=== PATIENT | female | born 2000 | race Caucasian/White ===

== ENCOUNTER 2022-07-18 19:15 | Emergency (ER) | payer OTHER ==
[~2022-07-18] VITALS: Ht 149.9 cm; Wt 97.5 kg
[2022-07-18] MEDS ORDERED: SODIUM CHLORIDE 0.9% 1000ML 1,000 ML IV SCH (20:30)
[2022-07-18 20:52] LABS: BASOPHILS # (AUTO) 0.1 (0.0-0.1); BASOPHILS % 0.8 % (0.0-1.0); EOSINOPHILS # (AUTO) 0.2 (0.0-0.4); EOSINOPHILS % 2.2 % (0.0-6.0); HEMATOCRIT 46.7 % (34.2-44.1); LYMPHOCYTES # (AUTO) 2.2 (1.0-3.2); LYMPHOCYTES % 21.4 % (18.0-39.1); MEAN CORPUSCULAR HEMOGLOBIN 29.5 pg (28-32); MEAN CORPUSCULAR HGB CONC 32.1 g/dL (31-35); MEAN CORPUSCULAR VOLUME 91.7 fL (81-99); MONOCYTES # (AUTO) 0.7 (0.2-0.8); MONOCYTES % 6.4 % (4.4-11.3); NEUTROPHILS # (AUTO) 7.1 (2.1-6.9); PLATELET COUNT 413 x10e3/uL (140-360); RED BLOOD COUNT 5.09 x10e6/uL (3.6-5.1)
[2022-07-18 21:10] LABS: INR 0.87
[2022-07-18 21:16] LABS: ALBUMIN 2.3 g/dL (3.5-5.0); ALBUMIN/GLOBULIN RATIO 0.5 (0.8-2.0); ANION GAP 13.8 mmol/L (8-16); CALCIUM 9.4 mg/dL (8.4-10.2); CREATININE, SERUM 1.32 mg/dL (0.57-1.11); POTASSIUM 3.8 mmol/L (3.5-5.1)
[2022-07-18 23:39] VITALS: BP 145/96
== END 2022-07-18 23:07 | disposition home or self-care (01) ==
LOC: ER 19:39
DX: N28.9 Disorder of kidney and ureter, unspecified (principal); R94.4 Abnormal results of kidney function studies; E10.9 Type 1 diabetes mellitus without complications; I10 Essential (primary) hypertension; E78.5 Hyperlipidemia, unspecified; Z88.0 Allergy status to penicillin; Z91.040 Latex allergy status; Z79.899 Other long term (current) drug therapy
CPT/HCPCS: 36415; 80053; 84702; 85025; 85610; 85730; 99283; J7030

== ENCOUNTER 2022-10-30 12:47 | Emergency (ER) | payer OTHER ==
[~2022-10-30] VITALS: Ht 149.9 cm; Wt 97.5 kg
[2022-10-30 13:16] LABS: BASOPHILS # (AUTO) 0.1 (0.0-0.1); BASOPHILS % 0.5 % (0.0-1.0); EOSINOPHILS # (AUTO) 0.1 (0.0-0.4); EOSINOPHILS % 0.6 % (0.0-6.0); HEMATOCRIT 36.6 % (34.2-44.1); HEMOGLOBIN 12.3 g/dL (12.0-16.0); LYMPHOCYTES # (AUTO) 0.9 (1.0-3.2); LYMPHOCYTES % 9.6 % (18.0-39.1); MEAN CORPUSCULAR HEMOGLOBIN 29.5 pg (28-32); MEAN CORPUSCULAR HGB CONC 33.6 g/dL (31-35); MEAN CORPUSCULAR VOLUME 87.8 fL (81-99); MONOCYTES # (AUTO) 0.6 (0.2-0.8); MONOCYTES % 6.9 % (4.4-11.3); NEUTROPHILS # (AUTO) 7.7 (2.1-6.9); PLATELET COUNT 344 x10e3/uL (140-360); RED BLOOD COUNT 4.17 x10e6/uL (3.6-5.1); RED CELL DISTRIBUTION WIDTH 11.8 % (11.7-14.4)
[2022-10-30] MEDS ORDERED: ONDANSETRON HCL INJ 2MG/ML 2ML 2 MG/ML VIAL IV STA (13:18)
[2022-10-30 13:33] LABS: ALANINE AMINOTRANSFERASE 16 IU/L (0-55); ALBUMIN 1.9 g/dL (3.5-5.0); ALBUMIN/GLOBULIN RATIO 0.4 (0.8-2.0); ALKALINE PHOSPHATASE 99 IU/L (40-150); ANION GAP 11.1 mmol/L (8-16); BLOOD UREA NITROGEN 16 mg/dL (7-26); BUN/CREATININE RATIO 11 (6-25); CALCIUM 8.6 mg/dL (8.4-10.2); CARBON DIOXIDE 23 mmol/L (22-29); CHLORIDE 107 mmol/L (98-107); CREATININE, SERUM 1.45 mg/dL (0.57-1.11); GLUCOSE 112 mg/dL (74-118); POTASSIUM 4.1 mmol/L (3.5-5.1); SODIUM 137 mmol/L (136-145)
[2022-10-30 14:10] VITALS: BP 159/102; PULSE 92; RESP 17; O2SAT 100
== END 2022-10-30 14:12 | disposition home or self-care (01) ==
LOC: ER 12:51
DX: I10 Essential (primary) hypertension (principal); E11.9 Type 2 diabetes mellitus without complications; E78.5 Hyperlipidemia, unspecified
CPT/HCPCS: 36415; 80053; 81025; 85025; 99283; J2405

== ENCOUNTER 2024-08-02 19:43 | Emergency (ER) | payer OTHER ==
[~2024-08-02] VITALS: Ht 149.9 cm; Wt 119.3 kg
[~2024-08-02 19:43] MED LIST: ACETAMINOPHEN325 M1 PO; BENZONATATE100 MG PO; HUMALOG SC; LEVOTHYROXINE50 MCG PO; LISINOPRIL-HCT1 EACH PO; ONDANSETRON ODT4 MG PO; ROSUVASTATIN CA10 MG PO; ZOLOFT100 MG PO
[2024-08-02 19:49] VITALS: TEMP 98.7
[2024-08-02] MEDS: ONDANSETRON HCL INJ 2MG/ML 2ML 2 MG/ML VIAL IV STA (20:11)
[2024-08-02] MEDS: ACETAMIN/BUTALBITAL/CAFFEINE TAB PO ONE (20:11)
[2024-08-02 20:12] VITALS: BP 177/87
[2024-08-02] MEDS: METOCLOPRAMIDE HCL 10 MG/2ML VIAL IV ONE (20:12)
[2024-08-02] MEDS: DIPHENHYDRAMINE HCL INJ 50 MG/ML VIAL IV ONE (20:12)
[2024-08-02] MEDS: HYDRALAZINE HCL 20 MG/ML VIAL IV ONE (20:12)
[2024-08-02 20:19] LABS: BASOPHILS # (AUTO) 0.1 (0.0-0.1); BASOPHILS % 0.5 % (0.0-1.0); EOSINOPHILS # (AUTO) 0.6 (0.0-0.4); EOSINOPHILS % 5.1 % (0.0-6.0); HEMATOCRIT 32.7 % (34.2-44.1); HEMOGLOBIN 11.4 g/dL (12.0-16.0); LYMPHOCYTES % 16.6 % (18.0-39.1); MEAN CORPUSCULAR HEMOGLOBIN 32.2 pg (28-32); MEAN CORPUSCULAR HGB CONC 34.9 g/dL (31-35); MEAN CORPUSCULAR VOLUME 92.4 fL (81-99); MONOCYTES # (AUTO) 0.6 (0.2-0.8); MONOCYTES % 5.2 % (4.4-11.3); NEUTROPHILS # (AUTO) 8.6 (2.1-6.9); NEUTROPHILS % 72.3 % (38.7-80.0); PLATELET COUNT 313 x10e3/uL (140-360); RED BLOOD COUNT 3.54 x10e6/uL (3.6-5.1); RED CELL DISTRIBUTION WIDTH 11.9 % (11.7-14.4); WHITE BLOOD COUNT 11.84 x10e3/uL (4.8-10.8)
[2024-08-02 20:33] LABS: ALBUMIN/GLOBULIN RATIO 0.8 (0.8-2.0); ANION GAP 16.9 mmol/L (8-16); BILIRUBIN,TOTAL 0.3 mg/dL (0.2-1.2); CALCIUM 7.4 mg/dL (8.4-10.2); CREATININE, SERUM 6.08 mg/dL (0.57-1.11); POTASSIUM 3.9 mmol/L (3.5-5.1)
[2024-08-02 23:45] VITALS: PULSE 82; RESP 16; O2SAT 100
[2024-08-03] MEDS ORDERED: FIORICET 50-301 EACH PO (00:01)
[2024-08-03] MEDS ORDERED: ONDANSETRON ODT4 MG SL (00:01)
== END 2024-08-03 00:18 | disposition home or self-care (01) ==
LOC: ER 19:48
DX: R51.9 Headache, unspecified (principal); I12.0 Hypertensive chronic kidney disease with stage 5 chronic kidney disease or end stage renal disease; E11.22 Type 2 diabetes mellitus with diabetic chronic kidney disease; E11.65 Type 2 diabetes mellitus with hyperglycemia; N18.6 End stage renal disease; Z99.2 Dependence on renal dialysis; G47.30 Sleep apnea, unspecified
CPT/HCPCS: 36415; 70450; 80053; 84702; 85025; 99283; J0360; J1200; J2405; J2765

== ENCOUNTER 2024-11-28 08:51 | Inpatient (IN) | payer MEDICAID, OTHER ==
[~2024-11-28] VITALS: Ht 149.9 cm; Wt 104.3 kg
[~2024-11-28 08:51] MED LIST changes: +FIORICET 50-301 EACH PO; +ONDANSETRON ODT4 MG SL
[2024-11-28] MEDS ORDERED: HUMULIN R100 UNIT/2 INJ (09:14)
[2024-11-28] MEDS ORDERED: CARVEDILOL12.5 MG PO (09:14)
[2024-11-28] MEDS ORDERED: LOSARTAN POTASS50 MG PO (09:14)
[2024-11-28] MEDS ORDERED: LANTUS 3ML100 UNITS/ SQ (09:14)
[2024-11-28] MEDS ORDERED: CALCITROL PO (09:14)
[2024-11-28] MEDS ORDERED: HYDRALAZINE HCL50 MG PO (09:14)
[2024-11-28] MEDS ORDERED: PROCARDIA XL30 MG PO (09:14)
[2024-11-28] MEDS ORDERED: VITAMIN D250 MCG PO (09:14)
[2024-11-28] MEDS ORDERED: HYDROXYZIN10 MG/5 ML PO (09:14)
[2024-11-28] MEDS ORDERED: BUMETANIDE2 MG PO (09:14)
[2024-11-28] MEDS ORDERED: MAGNESIUM OXID400 MG PO (09:14)
[2024-11-28] MEDS: ONDANSETRON HCL INJ 2MG/ML 2ML 2 MG/ML VIAL IV STA (09:46)
[2024-11-28 09:57] LABS: BILIRUBIN,URINE NEGATIVE (NEGATIVE); CLARITY,URINE TURBID (CLEAR); COLOR,URINE YELLOW (YELLOW); GLUCOSE, URINE 500 (NEGATIVE); KETONES,URINE NEGATIVE (NEGATIVE); LEUKOCYTE ESTERASE ,URINE NEGATIVE (NEGATIVE); NITRITE,URINE NEGATIVE (NEGATIVE); PH,URINE 7 (5 - 7); PROTEIN,URINE DIPSTICK >=300 (NEGATIVE); URINE UROBILINOGEN 0.2 mg/dL (0.2 - 1)
[2024-11-28 09:58] LABS: ALANINE AMINOTRANSFERASE 6 IU/L (0-55); ALBUMIN 2.3 g/dL (3.5-5.0); ALBUMIN/GLOBULIN RATIO 0.5 (0.8-2.0); ALKALINE PHOSPHATASE 85 IU/L (40-150); ANION GAP 19.4 mmol/L (8-16); BILIRUBIN,TOTAL 0.3 mg/dL (0.2-1.2); BLOOD UREA NITROGEN 42 mg/dL (7-26); BUN/CREATININE RATIO 3 (6-25); CARBON DIOXIDE 19 mmol/L (22-29); CHLORIDE 98 mmol/L (98-107); CREATININE, SERUM 12.08 mg/dL (0.57-1.11); EST GLOMERULAR FILTRATION RATE 4 ML/MIN (>=60); GLUCOSE 252 mg/dL (74-118); LIPASE 5 U/L (8-78); SODIUM 133 mmol/L (136-145); TOTAL PROTEIN 6.5 g/dL (6.5-8.1)
[2024-11-28 10:06] LABS: BACTERIA,URINE MANY /HPF; EPITHELIAL CELLS,URINE MANY /LPF
[2024-11-28 10:10] LABS: POTASSIUM 3.4 mmol/L (3.5-5.1)
[2024-11-28 10:42] LABS: BASOPHILS # (AUTO) 0.1 (0.0-0.1); BASOPHILS % 0.4 % (0.0-1.0); EOSINOPHILS # (AUTO) 0.3 (0.0-0.4); EOSINOPHILS % 1.2 % (0.0-6.0); HEMATOCRIT 32.5 % (34.2-44.1); HEMOGLOBIN 11.2 g/dL (12.0-16.0); LYMPHOCYTES % 4.9 % (18.0-39.1); MEAN CORPUSCULAR HEMOGLOBIN 31.3 pg (28-32); MEAN CORPUSCULAR HGB CONC 34.5 g/dL (31-35); MEAN CORPUSCULAR VOLUME 90.8 fL (81-99); MONOCYTES # (AUTO) 1.5 (0.2-0.8); MONOCYTES % 6.9 % (4.4-11.3); NEUTROPHILS # (AUTO) 18.5 (2.1-6.9); PLATELET COUNT 238 x10e3/uL (140-360); RED BLOOD COUNT 3.58 x10e6/uL (3.6-5.1); RED CELL DISTRIBUTION WIDTH 11.6 % (11.7-14.4); WHITE BLOOD COUNT 21.43 x10e3/uL (4.8-10.8)
[2024-11-28] MEDS: CLINDAMYCIN 600MG / 50ML 50 ML IV ONE (11:27)
[2024-11-28] MEDS ORDERED: SODIUM CHLORIDE FLUSH 10 ML SYR INJ PRN (11:45)
[2024-11-28] MEDS: ACETAMINOPHEN 325 MG TAB PO ONE (11:59)
[2024-11-28 13:15] VITALS: PULSE 90; RESP 18; TEMP 99.6
[2024-11-28 16:00] VITALS: BP 152/79; PULSE 93; RESP 18; TEMP 99.5; O2SAT 98
[2024-11-28 17:09] VITALS: BP 153/95; PULSE 90; RESP 18; TEMP 99.6; O2SAT 99
[2024-11-28 17:17] VITALS: BP 153/95; PULSE 90; RESP 18; TEMP 99.6; O2SAT 99
[2024-11-28] MEDS ORDERED: HYDROXYZINE HCL25 MG PO (17:28)
[2024-11-28] MEDS ORDERED: ESCITALOPRAM OXA5 MG PO (17:28)
[2024-11-28] MEDS ORDERED: SEVELAMER CARB800 MG PO (17:28)
[2024-11-28] MEDS ORDERED: BISACODYL 10 MG SUPP PR PRN (17:30)
[2024-11-28] MEDS ORDERED: POLYETHYLENE GLYCOL 3350 17 GM PACK PO PRN (17:30)
[2024-11-28] MEDS: ACETAMINOPHEN 325 MG TAB PO PRN (19:18)
[2024-11-28 20:27] VITALS: BP 165/108; PULSE 103; RESP 18; TEMP 98.4; O2SAT 99
[2024-11-28] MEDS: CLINDAMYCIN PHOS 900MG/ 50ML 50 ML IV SCH (20:41)
[2024-11-28] MEDS: HEPARIN SOD (PORCINE) 5,000 UNIT/ML VIAL SC SCH (20:42)
[2024-11-28] MEDS: HYDRALAZINE HCL 20 MG/ML VIAL IV PRN (20:43)
[2024-11-28] MEDS: ONDANSETRON HCL INJ 2MG/ML 2ML 2 MG/ML VIAL IV PRN (20:43)
[2024-11-28] MEDS: INSULIN GLARGINE 100 UNITS/ML VIAL SQ SCH (22:16)
[2024-11-28] MEDS: INSULIN LISPRO 100 UNIT/1 ML 3ML VIAL SQ SCH (22:17)
[2024-11-29] VITALS (10 sets, daily range): BP systolic 106–166; BP diastolic 57–108; PULSE 78–103; RESP 16–20; TEMP 98.1–100.5; O2SAT 97–100
[2024-11-29 06:24] LABS: BASOPHILS # (AUTO) 0.1 (0.0-0.1); BASOPHILS % 0.4 % (0.0-1.0); EOSINOPHILS # (AUTO) 0.1 (0.0-0.4); EOSINOPHILS % 0.4 % (0.0-6.0); HEMATOCRIT 29.7 % (34.2-44.1); HEMOGLOBIN 10.4 g/dL (12.0-16.0); LYMPHOCYTES # (AUTO) 1.2 (1.0-3.2); LYMPHOCYTES % 5.4 % (18.0-39.1); MEAN CORPUSCULAR HEMOGLOBIN 31.4 pg (28-32); MEAN CORPUSCULAR VOLUME 89.7 fL (81-99); MONOCYTES # (AUTO) 1.3 (0.2-0.8); MONOCYTES % 5.7 % (4.4-11.3); NEUTROPHILS # (AUTO) 19.5 (2.1-6.9); NEUTROPHILS % 87.1 % (38.7-80.0); PLATELET COUNT 243 x10e3/uL (140-360); RED BLOOD COUNT 3.31 x10e6/uL (3.6-5.1); RED CELL DISTRIBUTION WIDTH 11.7 % (11.7-14.4); WHITE BLOOD COUNT 22.45 x10e3/uL (4.8-10.8)
[2024-11-29 06:43] LABS: ALBUMIN 1.9 g/dL (3.5-5.0); ALBUMIN/GLOBULIN RATIO 0.5 (0.8-2.0); ANION GAP 19.4 mmol/L (8-16); BILIRUBIN,TOTAL 0.3 mg/dL (0.2-1.2); CALCIUM 7.1 mg/dL (8.4-10.2); CREATININE, SERUM 11.95 mg/dL (0.57-1.11); TOTAL PROTEIN 5.9 g/dL (6.5-8.1)
[2024-11-29 06:45] LABS: POTASSIUM 3.4 mmol/L (3.5-5.1)
[2024-11-29 07:07] LABS: MAGNESIUM 1.5 MG/DL (1.3-2.1)
[2024-11-29] MEDS: INSULIN LISPRO 100 UNIT/1 ML 3ML VIAL SQ ONE (07:15)
[2024-11-29 07:32] LABS: THYROID STIMULATING HORMONE 2.284 uIU/mL (0.350-4.940)
[2024-11-29] MEDS: SODIUM CHLORIDE 0.9% 250ML 250 ML ONE (07:45)
[2024-11-29] MEDS: BUMETANIDE 1 MG TAB PO SCH (08:26)
[2024-11-29] MEDS: CARVEDILOL 12.5 MG TAB PO SCH (08:26)
[2024-11-29] MEDS: SEVELAMER CARBONATE 800 MG TAB PO SCH (08:26)
[2024-11-29] MEDS: ESCITALOPRAM OXALATE 10 MG TAB PO SCH (08:27)
[2024-11-29] MEDS: NIFEDIPINE CR 30 MG TAB PO SCH (08:27)
[2024-11-29] MEDS: INSULIN LISPRO 100 UNIT/1 ML 3ML VIAL SQ STA (10:34)
[2024-11-29] MEDS: HYDROCODONE/APAP 5MG-325MG TAB PO PRN (13:03)
[2024-11-29] MEDS: Vancomycin IV 1 GM in SODIUM CHLORIDE 0.9% 250ML 250 ML IV ONE (13:56)
[2024-11-29] MEDS: DEXTROSE 50% SYRINGE 50 ML IV PRN (16:03)
[2024-11-29] MEDS: GENTAMICIN SULFATE 15 GM CR TP SCH (18:26)
[2024-11-29] MEDS: MAGNESIUM OXIDE 400 MG TAB PO ONE (21:12)
[2024-11-29] MEDS: POTASSIUM CHLORIDE 10MEQ EA PO ONE (21:13)
[2024-11-30 03:42] VITALS: BP 120/76; PULSE 88; RESP 20; TEMP 99.1; O2SAT 100
[2024-11-30] MEDS ORDERED: Vancomycin IV 500 MG in SODIUM CHLORIDE 0.9% 100 ML IV SCH (04:00)
[2024-11-30 06:15] LABS: BASOPHILS # (AUTO) 0.1 (0.0-0.1); BASOPHILS % 0.4 % (0.0-1.0); EOSINOPHILS # (AUTO) 0.5 (0.0-0.4); EOSINOPHILS % 2.2 % (0.0-6.0); HEMATOCRIT 31.2 % (34.2-44.1); HEMOGLOBIN 10.6 g/dL (12.0-16.0); LYMPHOCYTES # (AUTO) 1.3 (1.0-3.2); LYMPHOCYTES % 5.7 % (18.0-39.1); MEAN CORPUSCULAR HEMOGLOBIN 30.8 pg (28-32); MEAN CORPUSCULAR VOLUME 90.7 fL (81-99); MONOCYTES # (AUTO) 1.6 (0.2-0.8); MONOCYTES % 6.9 % (4.4-11.3); NEUTROPHILS % 82.5 % (38.7-80.0); PLATELET COUNT 263 x10e3/uL (140-360); RED BLOOD COUNT 3.44 x10e6/uL (3.6-5.1); RED CELL DISTRIBUTION WIDTH 11.9 % (11.7-14.4); WHITE BLOOD COUNT 23.06 x10e3/uL (4.8-10.8)
[2024-11-30 06:30] LABS: ALBUMIN 1.8 g/dL (3.5-5.0); ALBUMIN/GLOBULIN RATIO 0.4 (0.8-2.0); ANION GAP 19.2 mmol/L (8-16); BILIRUBIN,TOTAL 0.3 mg/dL (0.2-1.2); CREATININE, SERUM 11.95 mg/dL (0.57-1.11); MAGNESIUM 1.5 MG/DL (1.3-2.1); POTASSIUM 3.2 mmol/L (3.5-5.1); TOTAL PROTEIN 5.9 g/dL (6.5-8.1)
[2024-11-30 06:32] LABS: CALCIUM 6.9 mg/dL (8.4-10.2)
[2024-11-30] MEDS: NIFEDIPINE CR 30 MG TAB PO SCH (09:00)
[2024-11-30] MEDS: CARVEDILOL 12.5 MG TAB PO SCH (09:00)
[2024-11-30 09:01] VITALS: BP 113/66; PULSE 89; RESP 20; TEMP 98.8; O2SAT 96
[2024-11-30 10:25] VITALS: BP 113/66; PULSE 89; RESP 20; TEMP 98.8; O2SAT 96
[2024-11-30] MEDS ORDERED: FENTANYL CITRATE/PF 100MCG/2 ML INJ ONE (10:37)
[2024-11-30] MEDS ORDERED: LIDOCAINE HCL 2% LOCAL INJ 5 ML SDV VIAL INJ ONE (10:37)
[2024-11-30] MEDS ORDERED: PROPOFOL IV EMULSION 10 MG/ML 20 ML VIAL ONE (10:39)
[2024-11-30] MEDS ORDERED: KETOROLAC TROMETHAMINE 30 MG/ML VIAL ONE (11:19)
[2024-11-30] MEDS ORDERED: ONDANSETRON HCL INJ 2MG/ML 2ML 2 MG/ML VIAL ONE (11:19)
[2024-11-30] MEDS ORDERED: METOCLOPRAMIDE HCL 10 MG/2ML VIAL ONE (11:19)
[2024-11-30] MEDS ORDERED: DEXAMETHASONE SOD PHOS INJ 4 MG/ML SDV ONE (11:19)
[2024-11-30] MEDS ORDERED: HYDROMORPHONE 2MG/ML ONE (11:25)
[2024-11-30 12:51] VITALS: BP 108/56; PULSE 85; RESP 20; TEMP 98.1; O2SAT 93
[2024-11-30] MEDS: CALCIUM CARBONATE 500 MG CHEWABLE TABS PO SCH (14:53)
[2024-11-30] MEDS: POTASSIUM CHLORIDE 20 MEQ TAB CR PO STA (14:53)
[2024-11-30 16:03] VITALS: BP 99/64; PULSE 85; RESP 20; TEMP 98.1; O2SAT 98
[2024-11-30 20:38] VITALS: BP 138/78; PULSE 89; RESP 16; TEMP 97.8; O2SAT 96
[2024-11-30] MEDS: BUMETANIDE 1 MG TAB PO SCH (21:49)
[2024-11-30] MEDS ORDERED: INSULIN LISPRO 100 UNIT/1 ML 3ML VIAL SQ SCH (23:30)
[2024-12-01] VITALS (33 sets, daily range): BP systolic 119–162; BP diastolic 66–94; PULSE 70–87; RESP 11–26; TEMP 97.7–98.9; O2SAT 93–99
[2024-12-01] MEDS ORDERED: MAGNESIUM SULF 1GRAM/DEXTROSE 100 ML IV PRN (02:00)
[2024-12-01] MEDS ORDERED: POTASSIUM CHLORIDE 20MEQ/100ML 200 ML IV PRN (02:00)
[2024-12-01] MEDS: SODIUM CHLORIDE 0.9% 1000ML 1,000 ML IV SCH (02:57)
[2024-12-01] MEDS: INSULIN REGULAR, HUMAN 3ML VL 100 UNIT in SODIUM CHLORIDE 0.9% 100 ML IV SCH (02:59)
[2024-12-01 07:31] LABS: ANION GAP 22.3 mmol/L (8-16); CALCIUM 7.7 mg/dL (8.4-10.2); CREATININE, SERUM 11.65 mg/dL (0.57-1.11); MAGNESIUM 1.6 MG/DL (1.3-2.1)
[2024-12-01 07:37] LABS: POTASSIUM 3.3 mmol/L (3.5-5.1)
[2024-12-01] MEDS: DEXTROSE 5%/0.45% SOD CHL 1,000 ML IV SCH (10:06)
[2024-12-01] MEDS: MAGNESIUM SULFATE 2GM/50ML 50 ML IV ONE (12:02)
[2024-12-01 13:21] LABS: BASOPHILS # (AUTO) 0.1 (0.0-0.1); BASOPHILS % 0.3 % (0.0-1.0); HEMATOCRIT 31.2 % (34.2-44.1); HEMOGLOBIN 10.5 g/dL (12.0-16.0); LYMPHOCYTES # (AUTO) 1.1 (1.0-3.2); LYMPHOCYTES % 4.6 % (18.0-39.1); MEAN CORPUSCULAR HGB CONC 33.7 g/dL (31-35); MONOCYTES # (AUTO) 0.8 (0.2-0.8); MONOCYTES % 3.4 % (4.4-11.3); NEUTROPHILS # (AUTO) 21.3 (2.1-6.9); NEUTROPHILS % 89.8 % (38.7-80.0); PLATELET COUNT 327 x10e3/uL (140-360); RED BLOOD COUNT 3.39 x10e6/uL (3.6-5.1); RED CELL DISTRIBUTION WIDTH 11.6 % (11.7-14.4); WHITE BLOOD COUNT 23.69 x10e3/uL (4.8-10.8)
[2024-12-01 13:36] LABS: ANION GAP 17.7 mmol/L (8-16); CREATININE, SERUM 9.89 mg/dL (0.57-1.11); MAGNESIUM 1.5 MG/DL (1.3-2.1); POTASSIUM 3.7 mmol/L (3.5-5.1)
[2024-12-01 13:44] LABS: CALCIUM 6.5 mg/dL (8.4-10.2)
[2024-12-01 14:11] LABS: BAND NEUTROPHILS % (MANUAL) 1 %; LYMPHOCYTES % (MANUAL) 7 % (19-48); MONOCYTES % (MANUAL) 3 % (3.4-9.0); NEUTROPHILS % (MANUAL) 88 % (40-74); REACTIVE LYMPHOCYTES 1
[2024-12-01 14:12] LABS: PLATELET ESTIMATE ADEQUATE; PLATELET MORPHOLOGY COMMENT NORMAL
[2024-12-01] MEDS: Vancomycin IV 1 GM in SODIUM CHLORIDE 0.9% 250ML 250 ML IV SCH (14:47)
[2024-12-01] MEDS ORDERED: DEXTROSE 50% SYRINGE 50 ML IV PRN (15:00)
[2024-12-01] MEDS ORDERED: INSULIN REGULAR, HUMAN 3ML VL 100 UNIT in SODIUM CHLORIDE 0.45% 100 ML 100 ML IV SCH ×2 (15:00→16:30)
[2024-12-01 19:23] LABS: ANION GAP 19.2 mmol/L (8-16); CALCIUM 7.2 mg/dL (8.4-10.2); CREATININE, SERUM 11.67 mg/dL (0.57-1.11)
[2024-12-01 19:26] LABS: POTASSIUM 3.2 mmol/L (3.5-5.1)
[2024-12-01 19:54] LABS: FREE T4 (FREE THYROXINE) 1.25 ng/dL (0.8-1.8); THYROID STIMULATING HORMONE 1.861 uIU/mL (0.350-4.940)
[2024-12-01 21:38] LABS: ANION GAP 19.2 mmol/L (8-16); CALCIUM 7.5 mg/dL (8.4-10.2); CREATININE, SERUM 11.65 mg/dL (0.57-1.11); MAGNESIUM 2.2 MG/DL (1.3-2.1); POTASSIUM 3.2 mmol/L (3.5-5.1)
[2024-12-01] MEDS: POTASSIUM CHLORIDE 20MEQ/100ML 100 ML INJ PRN (22:07)
[2024-12-02] VITALS (30 sets, daily range): BP systolic 122–169; BP diastolic 61–92; PULSE 66–85; RESP 13–21; TEMP 98.4–98.9; O2SAT 93–100
[2024-12-02 03:12] LABS: ANION GAP 21.1 mmol/L (8-16); CALCIUM 7.2 mg/dL (8.4-10.2); CREATININE, SERUM 11.08 mg/dL (0.57-1.11)
[2024-12-02 03:25] LABS: POTASSIUM 3.1 mmol/L (3.5-5.1)
[2024-12-02 05:40] LABS: BASOPHILS # (AUTO) 0.1 (0.0-0.1); BASOPHILS % 0.6 % (0.0-1.0); EOSINOPHILS # (AUTO) 0.6 (0.0-0.4); EOSINOPHILS % 3.1 % (0.0-6.0); HEMATOCRIT 30.2 % (34.2-44.1); HEMOGLOBIN 10.2 g/dL (12.0-16.0); LYMPHOCYTES % 14.9 % (18.0-39.1); MEAN CORPUSCULAR HEMOGLOBIN 30.9 pg (28-32); MEAN CORPUSCULAR HGB CONC 33.8 g/dL (31-35); MEAN CORPUSCULAR VOLUME 91.5 fL (81-99); MONOCYTES # (AUTO) 0.8 (0.2-0.8); MONOCYTES % 4.1 % (4.4-11.3); NEUTROPHILS # (AUTO) 14.7 (2.1-6.9); NEUTROPHILS % 72.7 % (38.7-80.0); PLATELET COUNT 369 x10e3/uL (140-360); RED CELL DISTRIBUTION WIDTH 11.5 % (11.7-14.4); WHITE BLOOD COUNT 20.16 x10e3/uL (4.8-10.8)
[2024-12-02 06:09] LABS: ANION GAP 21.4 mmol/L (8-16); CALCIUM 7.4 mg/dL (8.4-10.2); CREATININE, SERUM 10.94 mg/dL (0.57-1.11)
[2024-12-02 06:18] LABS: BILIRUBIN,URINE NEGATIVE (NEGATIVE); CLARITY,URINE CLOUDY (CLEAR); COLOR,URINE YELLOW (YELLOW); GLUCOSE, URINE 1+ (NEGATIVE); KETONES,URINE NEGATIVE (NEGATIVE); LEUKOCYTE ESTERASE ,URINE NEGATIVE (NEGATIVE); NITRITE,URINE NEGATIVE (NEGATIVE); PH,URINE 5.5 (5 - 7); PROTEIN,URINE DIPSTICK >=300 (NEGATIVE); URINE UROBILINOGEN 0.2 mg/dL (0.2 - 1)
[2024-12-02 06:19] LABS: POTASSIUM 3.4 mmol/L (3.5-5.1)
[2024-12-02 06:45] LABS: RBC,URINE >50 /HPF (0-5)
[2024-12-02 06:46] LABS: BACTERIA,URINE MODERATE /HPF; EPITHELIAL CELLS,URINE MODERATE /LPF
[2024-12-02 07:46] LABS: BAND NEUTROPHILS % (MANUAL) 3 %; EOSINOPHILS % (MANUAL) 2 % (0-7); LYMPHOCYTES % (MANUAL) 18 % (19-48); MONOCYTES % (MANUAL) 3 % (3.4-9.0); NEUTROPHILS % (MANUAL) 74 % (40-74)
[2024-12-02 07:47] LABS: PLATELET ESTIMATE ADEQUATE; PLATELET MORPHOLOGY COMMENT NORMAL; RBC MORPHOLOGY COMMENT NORMAL
[2024-12-02] MEDS: INSULIN GLARGINE 100 UNITS/ML VIAL SQ SCH ×2 (09:08→16:22)
[2024-12-02 12:29] LABS: BASOPHILS # (AUTO) 0.1 (0.0-0.1); BASOPHILS % 0.5 % (0.0-1.0); EOSINOPHILS # (AUTO) 0.8 (0.0-0.4); EOSINOPHILS % 4.2 % (0.0-6.0); HEMATOCRIT 31.7 % (34.2-44.1); HEMOGLOBIN 10.8 g/dL (12.0-16.0); LYMPHOCYTES # (AUTO) 2.6 (1.0-3.2); LYMPHOCYTES % 14.1 % (18.0-39.1); MEAN CORPUSCULAR HEMOGLOBIN 30.7 pg (28-32); MEAN CORPUSCULAR HGB CONC 34.1 g/dL (31-35); MEAN CORPUSCULAR VOLUME 90.1 fL (81-99); MONOCYTES # (AUTO) 0.7 (0.2-0.8); NEUTROPHILS # (AUTO) 13.2 (2.1-6.9); NEUTROPHILS % 72.3 % (38.7-80.0); PLATELET COUNT 377 x10e3/uL (140-360); RED BLOOD COUNT 3.52 x10e6/uL (3.6-5.1); RED CELL DISTRIBUTION WIDTH 11.8 % (11.7-14.4); WHITE BLOOD COUNT 18.25 x10e3/uL (4.8-10.8)
[2024-12-02 12:55] LABS: ANION GAP 18.4 mmol/L (8-16); CALCIUM 7.4 mg/dL (8.4-10.2); CREATININE, SERUM 11.16 mg/dL (0.57-1.11)
[2024-12-02 12:58] LABS: POTASSIUM 3.4 mmol/L (3.5-5.1)
[2024-12-02] MEDS: POTASSIUM CHLORIDE 20 MEQ TAB CR PO ONE (16:08)
[2024-12-02] MEDS: INSULIN LISPRO 100 UNIT/1 ML 3ML VIAL SQ SCH ×2 (16:16→16:19)
[2024-12-03] VITALS (23 sets, daily range): BP systolic 120–171; BP diastolic 62–90; PULSE 70–103; RESP 14–24; TEMP 98–98.5; O2SAT 91–100
[2024-12-03 04:09] LABS: HEPATITIS BE ANTIGEN Negative (Negative)
[2024-12-03 05:03] LABS: HEPATITIS BE ANTIBODY Non Reactive (Negative)
[2024-12-03 07:25] LABS: BASOPHILS # (AUTO) 0.1 (0.0-0.1); EOSINOPHILS # (AUTO) 0.8 (0.0-0.4); EOSINOPHILS % 6.3 % (0.0-6.0); HEMATOCRIT 30.3 % (34.2-44.1); HEMOGLOBIN 10.1 g/dL (12.0-16.0); LYMPHOCYTES # (AUTO) 2.4 (1.0-3.2); LYMPHOCYTES % 17.5 % (18.0-39.1); MEAN CORPUSCULAR HEMOGLOBIN 30.8 pg (28-32); MEAN CORPUSCULAR HGB CONC 33.3 g/dL (31-35); MEAN CORPUSCULAR VOLUME 92.4 fL (81-99); MONOCYTES # (AUTO) 0.7 (0.2-0.8); MONOCYTES % 5.3 % (4.4-11.3); NEUTROPHILS # (AUTO) 8.2 (2.1-6.9); NEUTROPHILS % 61.2 % (38.7-80.0); PLATELET COUNT 348 x10e3/uL (140-360); RED BLOOD COUNT 3.28 x10e6/uL (3.6-5.1); RED CELL DISTRIBUTION WIDTH 11.9 % (11.7-14.4); WHITE BLOOD COUNT 13.41 x10e3/uL (4.8-10.8)
[2024-12-03 08:05] LABS: ALBUMIN 1.9 g/dL (3.5-5.0); ALBUMIN/GLOBULIN RATIO 0.5 (0.8-2.0); ALKALINE PHOSPHATASE 82 IU/L (40-150); ANION GAP 20.6 mmol/L (8-16); BILIRUBIN,TOTAL 0.2 mg/dL (0.2-1.2); BLOOD UREA NITROGEN 47 mg/dL (7-26); BUN/CREATININE RATIO 4 (6-25); CARBON DIOXIDE 16 mmol/L (22-29); CHLORIDE 99 mmol/L (98-107); CREATININE, SERUM 12.01 mg/dL (0.57-1.11); EST GLOMERULAR FILTRATION RATE 4 ML/MIN (>=60); MAGNESIUM 1.9 MG/DL (1.3-2.1); POTASSIUM 4.6 mmol/L (3.5-5.1); SODIUM 131 mmol/L (136-145); TOTAL PROTEIN 5.5 g/dL (6.5-8.1)
[2024-12-03 08:07] LABS: ALANINE AMINOTRANSFERASE < 6 IU/L (0-55)
[2024-12-03 08:09] LABS: GLUCOSE 433 mg/dL (74-118)
[2024-12-03] MEDS: SENNOSIDES 8.6 MG TAB PO SCH (11:59)
[2024-12-03] MEDS: DOCUSATE SODIUM 100 MG CAP PO SCH (11:59)
[2024-12-03] MEDS: INSULIN LISPRO 100 UNIT/1 ML 3ML VIAL SQ SCH (16:48)
[2024-12-03] MEDS ORDERED: INSULIN GLARGINE 100 UNITS/ML VIAL SQ SCH ×2 (17:00)
[2024-12-03] MEDS: INSULIN GLARGINE 100 UNITS/ML VIAL SQ SCH (20:05)
[2024-12-03] MEDS: HYDROXYZINE HCL 25 MG TAB PO PRN (21:36)
[2024-12-04] VITALS (17 sets, daily range): BP systolic 124–171; BP diastolic 64–91; PULSE 77–90; RESP 15–22; TEMP 97.9–98.3; O2SAT 95–100
[2024-12-04 06:43] LABS: BASOPHILS # (AUTO) 0.1 (0.0-0.1); EOSINOPHILS # (AUTO) 1.2 (0.0-0.4); EOSINOPHILS % 8.9 % (0.0-6.0); HEMATOCRIT 30.2 % (34.2-44.1); HEMOGLOBIN 9.9 g/dL (12.0-16.0); LYMPHOCYTES # (AUTO) 2.6 (1.0-3.2); LYMPHOCYTES % 19.3 % (18.0-39.1); MEAN CORPUSCULAR HEMOGLOBIN 30.7 pg (28-32); MEAN CORPUSCULAR HGB CONC 32.8 g/dL (31-35); MEAN CORPUSCULAR VOLUME 93.8 fL (81-99); MONOCYTES # (AUTO) 0.8 (0.2-0.8); MONOCYTES % 6.2 % (4.4-11.3); NEUTROPHILS # (AUTO) 7.3 (2.1-6.9); PLATELET COUNT 321 x10e3/uL (140-360); RED BLOOD COUNT 3.22 x10e6/uL (3.6-5.1); RED CELL DISTRIBUTION WIDTH 11.8 % (11.7-14.4); WHITE BLOOD COUNT 13.47 x10e3/uL (4.8-10.8)
[2024-12-04 07:18] LABS: ALBUMIN/GLOBULIN RATIO 0.5 (0.8-2.0); ALKALINE PHOSPHATASE 72 IU/L (40-150); ANION GAP 21.2 mmol/L (8-16); BILIRUBIN,TOTAL 0.2 mg/dL (0.2-1.2); BLOOD UREA NITROGEN 53 mg/dL (7-26); BUN/CREATININE RATIO 4 (6-25); CALCIUM 7.1 mg/dL (8.4-10.2); CARBON DIOXIDE 17 mmol/L (22-29); CHLORIDE 102 mmol/L (98-107); CREATININE, SERUM 12.31 mg/dL (0.57-1.11); EST GLOMERULAR FILTRATION RATE 4 ML/MIN (>=60); GLUCOSE 247 mg/dL (74-118); POTASSIUM 4.2 mmol/L (3.5-5.1); SODIUM 136 mmol/L (136-145); TOTAL PROTEIN 5.7 g/dL (6.5-8.1)
[2024-12-04 07:26] LABS: ALANINE AMINOTRANSFERASE < 6 IU/L (0-55)
[2024-12-04] MEDS: INSULIN GLARGINE 100 UNITS/ML VIAL SQ SCH ×2 (09:15→22:23)
[2024-12-04] MEDS: GENTAMICIN SULFATE 15 GM CR TP SCH (22:28)
[2024-12-05 01:33] VITALS: BP 134/83; PULSE 90; RESP 18; TEMP 98.1; O2SAT 100
[2024-12-05 06:49] LABS: BASOPHILS # (AUTO) 0.1 (0.0-0.1); BASOPHILS % 0.9 % (0.0-1.0); EOSINOPHILS # (AUTO) 1.4 (0.0-0.4); EOSINOPHILS % 9.6 % (0.0-6.0); HEMATOCRIT 28.8 % (34.2-44.1); HEMOGLOBIN 9.6 g/dL (12.0-16.0); MEAN CORPUSCULAR HEMOGLOBIN 30.7 pg (28-32); MEAN CORPUSCULAR HGB CONC 33.3 g/dL (31-35); MONOCYTES # (AUTO) 0.7 (0.2-0.8); MONOCYTES % 4.7 % (4.4-11.3); NEUTROPHILS # (AUTO) 8.8 (2.1-6.9); NEUTROPHILS % 60.9 % (38.7-80.0); PLATELET COUNT 305 x10e3/uL (140-360); RED BLOOD COUNT 3.13 x10e6/uL (3.6-5.1); RED CELL DISTRIBUTION WIDTH 11.8 % (11.7-14.4); WHITE BLOOD COUNT 14.42 x10e3/uL (4.8-10.8)
[2024-12-05 07:29] LABS: ALBUMIN/GLOBULIN RATIO 0.6 (0.8-2.0); ALKALINE PHOSPHATASE 66 IU/L (40-150); ANION GAP 19.9 mmol/L (8-16); BILIRUBIN,TOTAL 0.2 mg/dL (0.2-1.2); BLOOD UREA NITROGEN 58 mg/dL (7-26); BUN/CREATININE RATIO 5 (6-25); CALCIUM 7.2 mg/dL (8.4-10.2); CARBON DIOXIDE 18 mmol/L (22-29); CHLORIDE 100 mmol/L (98-107); CREATININE, SERUM 12.15 mg/dL (0.57-1.11); EST GLOMERULAR FILTRATION RATE 4 ML/MIN (>=60); GLUCOSE 238 mg/dL (74-118); POTASSIUM 3.9 mmol/L (3.5-5.1); SODIUM 134 mmol/L (136-145); TOTAL PROTEIN 5.5 g/dL (6.5-8.1)
[2024-12-05 07:35] LABS: ALANINE AMINOTRANSFERASE < 6 IU/L (0-55)
[2024-12-05 07:48] VITALS: BP 136/82; PULSE 84; RESP 19; TEMP 98; O2SAT 100
[2024-12-05 08:18] VITALS: BP 136/82; PULSE 84; RESP 19; TEMP 98; O2SAT 100
[2024-12-05 12:13] VITALS: BP 134/79; PULSE 87; RESP 20; TEMP 98; O2SAT 99
[2024-12-05] MEDS ORDERED: INSULIN LISPRO 100 UNIT/1 ML 3ML VIAL SQ SCH (16:30)
[2024-12-05] MEDS ORDERED: CEPHALEXIN500 MG PO (16:48)
[2024-12-05] MEDS ORDERED: INSULIN AS100 UNIT/3 SC (16:48)
[2024-12-05] MEDS ORDERED: INSULIN PEN NE1 EAC1 SC (16:48)
[2024-12-05] MEDS ORDERED: INSULIN GL300 UNIT/1 SC (16:48)
[2024-12-05 16:50] VITALS: BP 131/76; PULSE 81; RESP 19; TEMP 97.7; O2SAT 100
[2024-12-05] MEDS ORDERED: CEPHALEXIN 500 MG CAP PO SCH (21:00)
== END 2024-12-05 17:30 | disposition home or self-care (01) | DRG 871 ==
LOC: ER 08:54 → ERHOLD 11:43 → MED/SURG3 13:52 → OBSVTOIN 11-29 13:06 → ICU 12-01 02:36 → MED/SURG3 12-04 13:30
PROVIDERS: ADMIT Internal Medicine; ATTEND Internal Medicine
PROC: 5A1D70Z Performance of Urinary Filtration, Intermittent, Less than 6 Hours Per Day (ICD-10-PCS; principal; 2024-11-29)
PROC: 0X950ZX Drainage of Left Axilla, Open Approach, Diagnostic (ICD-10-PCS; 2024-11-30)
DX: A41.9 Sepsis, unspecified organism (principal); E10.10 Type 1 diabetes mellitus with ketoacidosis without coma; N18.6 End stage renal disease; I12.0 Hypertensive chronic kidney disease with stage 5 chronic kidney disease or end stage renal disease; L02.412 Cutaneous abscess of left axilla; Z68.42 Body mass index [BMI] 45.0-49.9, adult; L03.112 Cellulitis of left axilla; E10.42 Type 1 diabetes mellitus with diabetic polyneuropathy; B95.61 Methicillin susceptible Staphylococcus aureus infection as the cause of diseases classified elsewhere; E10.22 Type 1 diabetes mellitus with diabetic chronic kidney disease; E21.3 Hyperparathyroidism, unspecified; E87.6 Hypokalemia; M89.8X9 Other specified disorders of bone, unspecified site; G47.33 Obstructive sleep apnea (adult) (pediatric); E66.01 Morbid (severe) obesity due to excess calories; D63.1 Anemia in chronic kidney disease; Z99.2 Dependence on renal dialysis; Z79.4 Long term (current) use of insulin; Z99.89 Dependence on other enabling machines and devices; Z91.041 Radiographic dye allergy status; Z91.040 Latex allergy status; Z88.0 Allergy status to penicillin; Z91.013 Allergy to seafood; Z88.8 Allergy status to other drugs, medicaments and biological substances; Z91.048 Other nonmedicinal substance allergy status; Z79.890 Hormone replacement therapy; Z91.119 Patient's noncompliance with dietary regimen due to unspecified reason; Z83.3 Family history of diabetes mellitus; Z82.49 Family history of ischemic heart disease and other diseases of the circulatory system
CPT/HCPCS: 36415; 71250; 80048; 80053; 81001; 82947; 82948; 83036; 83605; 83690; 83735; 84132; 84439; 84443; 84702; 85025; 86706; 86707; 87040; 87071; 87075; 87081; 87086; 87186; 87205; 87350; 93306; 96372; 99252; 99284; G0378; J0360; J0690; J1100; J1171; J1644; J1815; J1885; J2003; J2185; J2405; J2470; J2765; J3410; J3475; J3480; J7030; J7050; J7799

== ENCOUNTER 2025-02-20 10:31 | Emergency (ER) | payer MEDICAID ==
[~2025-02-20] VITALS: Ht 149.9 cm; Wt 108.0 kg
[~2025-02-20 10:31] MED LIST changes: +BUMETANIDE2 MG PO; +CALCITROL PO; +CARVEDILOL12.5 MG PO; +CEPHALEXIN500 MG PO; +ESCITALOPRAM OXA5 MG PO; +HUMULIN R100 UNIT/2 INJ; +HYDRALAZINE HCL50 MG PO; +HYDROXYZIN10 MG/5 ML PO; +HYDROXYZINE HCL25 MG PO; +INSULIN AS100 UNIT/3 SC; +INSULIN GL300 UNIT/1 SC; +INSULIN PEN NE1 EAC1 SC; +LANTUS 3ML100 UNITS/ SQ; +LOSARTAN POTASS50 MG PO; +MAGNESIUM OXID400 MG PO; +PROCARDIA XL30 MG PO; +SEVELAMER CARB800 MG PO; +VITAMIN D250 MCG PO
[2025-02-20 10:40] VITALS: TEMP 98.3
[2025-02-20 11:31] LABS: BASOPHILS % 0.6 % (0.0-1.0); EOSINOPHILS % 8.8 % (0.0-6.0); LYMPHOCYTES % 11.0 % (18.0-39.1); MONOCYTES % 6.5 % (4.4-11.3); NEUTROPHILS % 72.8 % (38.7-80.0); RED CELL DISTRIBUTION WIDTH 13.8 % (11.7-14.4)
[2025-02-20 11:49] LABS: CORONAVIRUS COVID-19 AG NEGATIVE (NEGATIVE)
[2025-02-20 11:52] LABS: INR 1.07
[2025-02-20 12:00] LABS: EST GLOMERULAR FILTRATION RATE 4 ML/MIN (>=60)
[2025-02-20] MEDS: FUROSEMIDE INJ 10 MG/ML 4 ML VIAL IV ONE (13:06)
[2025-02-20 14:16] VITALS: PULSE 87; RESP 18; O2SAT 100
== END 2025-02-20 14:34 | disposition home or self-care (01) ==
LOC: ER 10:50
DX: I12.0 Hypertensive chronic kidney disease with stage 5 chronic kidney disease or end stage renal disease (principal); E10.22 Type 1 diabetes mellitus with diabetic chronic kidney disease; E10.65 Type 1 diabetes mellitus with hyperglycemia; N18.6 End stage renal disease; Z99.2 Dependence on renal dialysis; G47.30 Sleep apnea, unspecified; E66.01 Morbid (severe) obesity due to excess calories
CPT/HCPCS: 36415; 71045; 80053; 83735; 84484; 84702; 85025; 85610; 85730; 87426; 93005; 99284; J1938

== ENCOUNTER 2025-03-26 23:21 | Inpatient (IN) | payer MEDICAID ==
[~2025-03-26] VITALS: Ht 149.9 cm; Wt 108.9 kg
[2025-03-26] MEDS: SODIUM CHLORIDE 0.9% 1000ML 1,000 ML IV STA (23:38)
[2025-03-26 23:39] LABS: BASOPHILS % 0.2 % (0.0-1.0); EOSINOPHILS % 0.0 % (0.0-6.0); LYMPHOCYTES % 2.1 % (18.0-39.1); MONOCYTES % 4.4 % (4.4-11.3); NEUTROPHILS % 92.4 % (38.7-80.0); RED CELL DISTRIBUTION WIDTH 14.6 % (11.7-14.4)
[2025-03-26 23:55] LABS: ABG BASE EXCESS -5.0 mmol/L (-2 - 3); ABG HCO3 20 mmol/L (22-26); ABG OXYGEN SATURATION 97.0 % (95-98); ABG PCO2 34 mmHg (35-45); ABG PH 7.38 (7.35-7.45); ABG PO2 92 mmHg (80-105); ABG TCO2 21
[2025-03-27] VITALS (7 sets, daily range): BP systolic 127–167; BP diastolic 76–104; PULSE 98–109; RESP 20–25; TEMP 97.5–98.9; O2SAT 94–99
[2025-03-27 00:01] LABS: EST GLOMERULAR FILTRATION RATE 3.0 ML/MIN (>=60)
[2025-03-27] MEDS: INSULIN REGULAR, HUMAN 100 UNIT/1 ML IV STA (00:07)
[2025-03-27] MEDS: SODIUM CHLORIDE 0.9% 1000ML 1,000 ML IV STA (00:51)
[2025-03-27 02:22] LABS: EST GLOMERULAR FILTRATION RATE 3.0 ML/MIN (>=60)
[2025-03-27] MEDS ORDERED: HUMALOG100 UNIT/1 (09:01)
[2025-03-27 09:50] LABS: CORONAVIRUS COVID-19 AG NEGATIVE (NEGATIVE)
[2025-03-27] MEDS: FUROSEMIDE INJ 10 MG/ML 4 ML VIAL IV SCH (10:37)
[2025-03-27] MEDS: LEVOFLOXACIN 750MG/D5W 150ML 150 ML IV SCH (10:38)
[2025-03-27] MEDS: Morphine 4mg INJECTION 4 MG/ML INJ IV PRN (10:38)
[2025-03-27] MEDS ORDERED: NIFEDIPINE CR 30 MG TAB PO SCH (11:15)
[2025-03-27] MEDS: HYDRALAZINE HCL 25 MG TAB PO SCH (11:15)
[2025-03-27] MEDS ORDERED: CARVEDILOL 12.5 MG TAB PO SCH (11:15)
[2025-03-27] MEDS: LOSARTAN POTASSIUM 25 MG TAB PO SCH (11:53)
[2025-03-27] MEDS: CARVEDILOL 12.5 MG TAB PO SCH (11:53)
[2025-03-27] MEDS: HYDRALAZINE HCL 20 MG/ML VIAL IV PRN (15:13)
[2025-03-27] MEDS ORDERED: GENTAMICIN SULFATE 15 GM CR TP PRN (19:00)
[2025-03-27] MEDS: ONDANSETRON HCL INJ 2MG/ML 2ML 2 MG/ML VIAL IV PRN (19:05)
[2025-03-28] VITALS (9 sets, daily range): BP systolic 103–161; BP diastolic 54–91; PULSE 86–103; RESP 18–22; TEMP 97.5–98.2; O2SAT 94–100
[2025-03-28 06:25] LABS: BASOPHILS % 0.4 % (0.0-1.0); EOSINOPHILS % 1.1 % (0.0-6.0); LYMPHOCYTES % 6.0 % (18.0-39.1); MONOCYTES % 9.6 % (4.4-11.3); NEUTROPHILS % 81.7 % (38.7-80.0); RED CELL DISTRIBUTION WIDTH 15.0 % (11.7-14.4)
[2025-03-28 07:03] LABS: EST GLOMERULAR FILTRATION RATE 3.0 ML/MIN (>=60)
[2025-03-28] MEDS: METHYLPREDNISOLONE SOD SUCC 40 MG/ML VIAL 1ML IV ONE (13:20)
[2025-03-28] MEDS: LEVALBUTEROL HCL SOLN NEBU 0.63 MG/3 ML NEB INH SCH (13:29)
[2025-03-29] VITALS (12 sets, daily range): BP systolic 132–164; BP diastolic 72–81; PULSE 83–97; RESP 19–23; TEMP 97.5–98.4; O2SAT 95–100
[2025-03-29 06:35] LABS: BASOPHILS % 0.1 % (0.0-1.0); EOSINOPHILS % 0.0 % (0.0-6.0); LYMPHOCYTES % 2.3 % (18.0-39.1); MONOCYTES % 5.6 % (4.4-11.3); NEUTROPHILS % 90.9 % (38.7-80.0); RED CELL DISTRIBUTION WIDTH 15.4 % (11.7-14.4)
[2025-03-29 06:41] LABS: EST GLOMERULAR FILTRATION RATE 4.0 ML/MIN (>=60); PHOSPHORUS 8.9 MG/DL (2.3-4.7)
[2025-03-29] MEDS ORDERED: LEVOFLOXACIN IV SCH (09:00)
[2025-03-29] MEDS ORDERED: [UNRECOGNIZED DRUG - OTHER] IV SCH (09:00)
[2025-03-29] MEDS: LEVOFLOXACIN 500MG/D5W 100ML 100 ML IV SCH (09:37)
[2025-03-29] MEDS: SOD POLYSTYRENE SULFONATE SUSP 15 GM/60 ML BTL PO ONE (15:01)
[2025-03-30] VITALS (7 sets, daily range): BP systolic 127–148; BP diastolic 70–78; PULSE 83–100; RESP 19–21; TEMP 97.5–98.5; O2SAT 95–99
[2025-03-30 07:24] LABS: EST GLOMERULAR FILTRATION RATE 4.0 ML/MIN (>=60)
[2025-03-30] MEDS: FLUTICASONE PROPIONATE NASAL SPRAY NS SCH (10:52)
[2025-03-31 05:46] LABS: BASOPHILS % 0.7 % (0.0-1.0); EOSINOPHILS % 7.1 % (0.0-6.0); LYMPHOCYTES % 16.0 % (18.0-39.1); MONOCYTES % 8.5 % (4.4-11.3); NEUTROPHILS % 66.7 % (38.7-80.0); RED CELL DISTRIBUTION WIDTH 15.3 % (11.7-14.4)
[2025-03-31 06:18] LABS: EST GLOMERULAR FILTRATION RATE 4.0 ML/MIN (>=60)
[2025-03-31 06:30] VITALS: PULSE 85; RESP 18; O2SAT 97
[2025-03-31 08:00] VITALS: BP 136/71; PULSE 93; RESP 21; TEMP 97.4; O2SAT 95
[2025-03-31 09:50] VITALS: BP 136/71; PULSE 93; RESP 21; TEMP 97.4; O2SAT 95
[2025-03-31 12:00] VITALS: BP 140/74; PULSE 84; RESP 21; TEMP 97.3; O2SAT 97
[2025-03-31 12:01] VITALS: PULSE 85; RESP 18; O2SAT 97
[2025-03-31] MEDS ORDERED: TUMS200 MG PO (14:15)
[2025-03-31] MEDS: CALCIUM CARBONATE 500 MG CHEWABLE TABS PO SCH (15:40)
[2025-04-03 13:37] LABS: ABG BASE EXCESS -5.0 mmol/L (-2 - 3); ABG HCO3 20 mmol/L (22-26); ABG OXYGEN SATURATION 97.0 % (95-98); ABG PCO2 34 mmHg (35-45); ABG PH 7.38 (7.35-7.45); ABG PO2 92 mmHg (80-105); ABG TCO2 21
== END 2025-03-31 15:45 | disposition home or self-care (01) | DRG 202 ==
LOC: ER 23:28 → ERHOLD 03-27 02:53 → MED/SURG2 03-27 19:39
PROVIDERS: ADMIT Internal Medicine; ATTEND Internal Medicine
PROC: 5A1D70Z Performance of Urinary Filtration, Intermittent, Less than 6 Hours Per Day (ICD-10-PCS; principal; 2025-03-28)
DX: J20.9 Acute bronchitis, unspecified (principal); E10.22 Type 1 diabetes mellitus with diabetic chronic kidney disease; I12.0 Hypertensive chronic kidney disease with stage 5 chronic kidney disease or end stage renal disease; N18.6 End stage renal disease; J81.1 Chronic pulmonary edema; E87.20 Acidosis, unspecified; E66.01 Morbid (severe) obesity due to excess calories; Z68.42 Body mass index [BMI] 45.0-49.9, adult; J06.9 Acute upper respiratory infection, unspecified; Z99.2 Dependence on renal dialysis; Z99.81 Dependence on supplemental oxygen; E10.65 Type 1 diabetes mellitus with hyperglycemia; E87.70 Fluid overload, unspecified; E87.5 Hyperkalemia; G47.33 Obstructive sleep apnea (adult) (pediatric); Z11.52 Encounter for screening for COVID-19; Z91.158 Patient's noncompliance with renal dialysis for other reason; Z88.0 Allergy status to penicillin; Z88.1 Allergy status to other antibiotic agents; Z91.041 Radiographic dye allergy status; Z91.048 Other nonmedicinal substance allergy status; Z91.013 Allergy to seafood; Z91.040 Latex allergy status
CPT/HCPCS: 36415; 36600; 71046; 80048; 80053; 82550; 82805; 82948; 83880; 84100; 84484; 85025; 87040; 94640; 94660; 94799; 99284; J0360; J1938; J1956; J2270; J2405; J2919; J7030

== ENCOUNTER 2025-04-01 06:51 | Inpatient (IN) | payer MEDICAID ==
[~2025-04-01] VITALS: Ht 149.9 cm; Wt 110.0 kg
[~2025-04-01 06:51] MED LIST changes: +HUMALOG100 UNIT/1; +TUMS200 MG PO
[2025-04-01 07:10] LABS: ABG BASE EXCESS 0.0 mmol/L (-2 - 3); ABG HCO3 26 mmol/L (22-26); ABG OXYGEN SATURATION 85.0 % (95-98); ABG PCO2 48 mmHg (35-45); ABG PH 7.34 (7.35-7.45); ABG PO2 54 mmHg (80-105); ABG TCO2 28
[2025-04-01 07:11] VITALS: TEMP 97.5
[2025-04-01 07:42] LABS: BASOPHILS % 0.4 % (0.0-1.0); EOSINOPHILS % 8.7 % (0.0-6.0); LYMPHOCYTES % 13.1 % (18.0-39.1); MONOCYTES % 5.9 % (4.4-11.3); NEUTROPHILS % 71.0 % (38.7-80.0); RED CELL DISTRIBUTION WIDTH 15.4 % (11.7-14.4)
[2025-04-01 08:04] LABS: INR 1.09
[2025-04-01 08:12] LABS: EST GLOMERULAR FILTRATION RATE 3 ML/MIN (>=60)
[2025-04-01] MEDS: CALCIUM GLUC 1 G/50 ML NACL 50 ML IV ONE (08:19)
[2025-04-01] MEDS ORDERED: DEXTROSE 50% SYRINGE 50 ML IV PRN (08:45)
[2025-04-01] MEDS: DEXTROSE 50% SYRINGE 50 ML IV ONE (09:14)
[2025-04-01] MEDS: CALCIUM CARBONATE 500 MG CHEWABLE TABS PO SCH (09:14)
[2025-04-01] MEDS: INSULIN LISPRO 100 UNIT/1 ML 3ML VIAL SQ SCH (11:30)
[2025-04-01 12:10] LABS: LEUKOCYTE ESTERASE ,URINE TRACE (NEGATIVE); OPIATES SCREEN,URINE POSITIVE (NEGATIVE); PROTEIN,URINE DIPSTICK >=300 (NEGATIVE)
[2025-04-01 12:11] LABS: AMPHETAMINES SCREEN,URINE NEGATIVE (NEGATIVE); CANNABINOIDS SCREEN,URINE NEGATIVE (NEGATIVE); COCAINE SCREEN,URINE NEGATIVE (NEGATIVE); METHADONE SCREEN, URINE NEGATIVE (NEGATIVE); URINE UROBILINOGEN 0.2 mg/dL (0.2 - 1)
[2025-04-01 12:31] LABS: EPITHELIAL CELLS,URINE MANY /LPF; WBC,URINE (MAN) >50 /HPF (0-5)
[2025-04-01] MEDS ORDERED: HYDROXYZINE HCL 25 MG TAB PO PRN (14:15)
[2025-04-01] MEDS: ONDANSETRON HCL INJ 2MG/ML 2ML 2 MG/ML VIAL IV PRN (16:32)
[2025-04-01] MEDS: CARVEDILOL 12.5 MG TAB PO SCH (16:33)
[2025-04-01] MEDS: NIFEDIPINE CR 30 MG TAB PO ONE (16:34)
[2025-04-01] MEDS ORDERED: CALCITRIOL 0.5 MCG CAP PO SCH (16:45)
[2025-04-01] MEDS: BUMETANIDE 1 MG TAB PO SCH (17:00)
[2025-04-01 17:41] LABS: CALCIUM IONIZED 0.9 mmol/L (1.09-1.30)
[2025-04-01 17:56] LABS: EST GLOMERULAR FILTRATION RATE 3.0 ML/MIN (>=60)
[2025-04-01] MEDS: SEVELAMER CARBONATE 800 MG TAB PO SCH (18:12)
[2025-04-01] MEDS: MAGNESIUM SULFATE 2GM/50ML 50 ML IV ONE (18:13)
[2025-04-01 20:38] VITALS: PULSE 79; RESP 20
[2025-04-01 21:03] VITALS: BP 122/65; PULSE 82; RESP 20; TEMP 97.2; O2SAT 92
[2025-04-01 21:10] VITALS: BP 122/65; PULSE 82; RESP 20; TEMP 97.2; O2SAT 92
[2025-04-01] MEDS: LEVETIRACETAM 1500 MG/100 ML 100 ML IV SCH (22:36)
[2025-04-02] VITALS (8 sets, daily range): BP systolic 101–141; BP diastolic 72–84; PULSE 74–84; RESP 17–18; TEMP 97.4–98.5; O2SAT 94–100
[2025-04-02 06:15] LABS: BASOPHILS % 0.5 % (0.0-1.0); EOSINOPHILS % 10.2 % (0.0-6.0); LYMPHOCYTES % 14.5 % (18.0-39.1); MONOCYTES % 6.7 % (4.4-11.3); NEUTROPHILS % 67.3 % (38.7-80.0); RED CELL DISTRIBUTION WIDTH 15.3 % (11.7-14.4)
[2025-04-02 06:48] LABS: EST GLOMERULAR FILTRATION RATE 3.0 ML/MIN (>=60); PHOSPHORUS 9.9 MG/DL (2.3-4.7)
[2025-04-02 07:17] LABS: EST GLOMERULAR FILTRATION RATE 3.0 ML/MIN (>=60)
[2025-04-02 07:18] LABS: CALCIUM IONIZED 0.9 mmol/L (1.09-1.30); CHOL/HDL RATIO 5.0 (3.0-3.6); LDL CHOLESTEROL 79.0 MG/DL (60-130)
[2025-04-02] MEDS: CALCITRIOL 0.25 MCG CAP PO SCH (09:20)
[2025-04-02] MEDS: NIFEDIPINE CR 30 MG TAB PO SCH (09:21)
[2025-04-02] MEDS: GENTAMICIN SULFATE 15 GM CR TP SCH (16:00)
[2025-04-02] MEDS: CALCIUM CARBONATE 500 MG CHEWABLE TABS PO SCH (16:52)
[2025-04-02] MEDS: SEVELAMER CARBONATE 800 MG TAB PO SCH (16:53)
[2025-04-02] MEDS ORDERED: POLYETHYLENE GLYCOL 3350 17 GM PACK PO PRN (19:30)
[2025-04-03 00:15] VITALS: BP 135/76; PULSE 81; RESP 18; TEMP 97.4; O2SAT 95
[2025-04-03 04:22] VITALS: BP 128/71; PULSE 79; RESP 18; TEMP 97.6; O2SAT 99
[2025-04-03] MEDS ORDERED: TUMS200 MG PO (05:57)
[2025-04-03] MEDS ORDERED: CALCITRIOL0.5 MCG PO (05:57)
[2025-04-03] MEDS ORDERED: LEVOFLOXACIN250 MG PO (06:00)
[2025-04-03 07:05] LABS: EST GLOMERULAR FILTRATION RATE 3.0 ML/MIN (>=60); PHOSPHORUS 9.5 MG/DL (2.3-4.7)
[2025-04-03 07:28] LABS: CALCIUM IONIZED 1.0 mmol/L (1.09-1.30)
[2025-04-03 07:39] VITALS: BP 139/77; PULSE 79; RESP 18; TEMP 97.8; O2SAT 100
[2025-04-03 09:00] VITALS: BP 139/77; PULSE 79; RESP 18; TEMP 97.8; O2SAT 100
[2025-04-03 09:02] VITALS: BP 139/77; PULSE 79
== END 2025-04-03 09:56 | disposition home or self-care (01) | DRG 640 ==
LOC: ER 07:03 → ERHOLD 08:25 → OBSVTOIN 14:22 → MED/SURG3 21:02
PROVIDERS: ADMIT Internal Medicine; ATTEND Internal Medicine
PROC: 3E1M39Z Irrigation of Peritoneal Cavity using Dialysate, Percutaneous Approach (ICD-10-PCS; principal; 2025-03-31)
PROC: 3E1M39Z Irrigation of Peritoneal Cavity using Dialysate, Percutaneous Approach (ICD-10-PCS; 2025-04-01)
PROC: 3E1M39Z Irrigation of Peritoneal Cavity using Dialysate, Percutaneous Approach (ICD-10-PCS; 2025-04-02)
DX: E83.51 Hypocalcemia (principal); N18.6 End stage renal disease; N39.0 Urinary tract infection, site not specified; Z68.42 Body mass index [BMI] 45.0-49.9, adult; I12.0 Hypertensive chronic kidney disease with stage 5 chronic kidney disease or end stage renal disease; I16.0 Hypertensive urgency; Z99.2 Dependence on renal dialysis; R56.9 Unspecified convulsions; E11.65 Type 2 diabetes mellitus with hyperglycemia; E11.22 Type 2 diabetes mellitus with diabetic chronic kidney disease; Z79.4 Long term (current) use of insulin; E83.42 Hypomagnesemia; E83.39 Other disorders of phosphorus metabolism; S01.552A Open bite of oral cavity, initial encounter; W18.39XA Other fall on same level, initial encounter; Y92.009 Unspecified place in unspecified non-institutional (private) residence as the place of occurrence of the external cause; D63.1 Anemia in chronic kidney disease; E66.01 Morbid (severe) obesity due to excess calories; G47.33 Obstructive sleep apnea (adult) (pediatric); Z79.899 Other long term (current) drug therapy; Z91.148 Patient's other noncompliance with medication regimen for other reason
CPT/HCPCS: 36415; 70450; 71045; 72125; 80048; 80053; 80061; 80307; 81001; 82040; 82805; 82948; 83036; 83735; 83970; 84100; 84484; 84702; 85025; 85610; 85730; 87086; 93005; 99284; J0696; J2405; J3475; J7799